=== PATIENT | male | born 1965 | race Caucasian/White ===

== ENCOUNTER 2023-12-16 17:00 | Emergency (ER) | payer OTHER, SELFPAY ==
[2023-12-16 17:01] VITALS: BP 120/87
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
[2023-12-16 18:36] VITALS: BP 128/82
== END 2023-12-16 18:45 | disposition home or self-care (01) ==
LOC: EMR 17:00
PROVIDERS: EMERGENCY PHYSICIAN Emergency Medicine; FAMILY PHYSICIAN Internal Medicine
DX: M25.532 Pain in left wrist (principal); S63.502A Unspecified sprain of left wrist, initial encounter; V19.88XA Pedal cyclist (driver) (passenger) injured in other specified transport accidents, initial encounter
CPT/HCPCS: 99283; 73110